=== PATIENT | male | born 1965 ===

== ENCOUNTER 2021-05-24 09:13 | Day surgery (SDC) | payer OTHER ==
[~2021-05-24] VITALS: Ht 154.9 cm; Wt 83.5 kg
[~2021-05-24 09:13] MED LIST: ASPIRIN81 MG PO; CHOLESTERO4; LIPITOR20 MG PO
[2021-05-24 11:30] VITALS: BP 113/57
== END 2021-05-24 11:55 | DRG 395 ==
LOC: ENDO 09:13 → ORM 09:30 → ENDO 10:00
PROVIDERS: ATTEND Surgery
PROC: 0DBN8ZX Excision of Sigmoid Colon, Via Natural or Artificial Opening Endoscopic, Diagnostic (ICD-10-PCS; principal; 2021-05-24)
DX: D12.5 Benign neoplasm of sigmoid colon (principal); E78.00 Pure hypercholesterolemia, unspecified